=== PATIENT | female | born 1965 | race Caucasian/White ===

== ENCOUNTER 2024-01-30 06:58 | Observation (INO) | payer BC ==
[2024-01-30] VITALS (8 sets, daily range): BP systolic 116–132; BP diastolic 64–74; TEMP 97.4–98.6; O2SAT 90–96
[~2024-01-30] VITALS: Ht 152.4 cm; Wt 80.7 kg
[~2024-01-30 06:58] MED LIST: METF500T13 PO; OMEG10002 PO; OMEP40CA4 PO; SEMA1PEN2 SQ; SYNT112T2 PO; THERTAB52 PO
[2024-01-30] MEDS ORDERED: ROCURONIUM BROMIDE 50MG/5ML VIAL As Ordered ONE (07:02)
[2024-01-30] MEDS ORDERED: LIDOCAINE 2% 100MG/5ML SDV (FOR ANES.) As Ordered ONE (07:03)
[2024-01-30] MEDS ORDERED: MIDAZOLAM INJ 2MG/2ML VIAL As Ordered ONE (07:03)
[2024-01-30] MEDS ORDERED: fentaNYL 100 MCG/2 ML INJECTION As Ordered ONE (07:04)
[2024-01-30] MEDS ORDERED: SUGAMMADEX SODIUM 500 MG/5 ML VIAL (BRIDION) As Ordered ONE (07:08)
[2024-01-30] MEDS ORDERED: ACETAMINOPHEN 1000MG 100ML IV BAG As Ordered ONE (07:09)
[2024-01-30] MEDS ORDERED: ONDANSETRON 4MG 2ML VIAL As Ordered ONE (07:09)
[2024-01-30] MEDS ORDERED: LR 1,000 ML IV SCH (07:10)
[2024-01-30] MEDS: ceFAZolin SOD 2 GM in IV 1 EA IV ONE (08:50)
[2024-01-30] MEDS: HEPARIN SOD (PORCINE) 5000UNITS/ML 1ML VIAL/SYRINGE SQ ONE (08:55)
[2024-01-30] MEDS ORDERED: HYDROmorphone HCL 2MG/ML 1ML VIAL As Ordered ONE (09:18)
[2024-01-30] MEDS: LIDOCAINE 1% MDV 20ML VIAL As Ordered ONE (09:24)
[2024-01-30] MEDS: GENTAMICIN SULF 80MG/2ML VIAL As Ordered ONE (09:25)
[2024-01-30] MEDS: EPINEPHrine INJ 1 MG/ML 1ML AMP As Ordered ONE (09:25)
[2024-01-30] MEDS ORDERED: PHENYLephrine 500MCG 5ML (100MCG/ML) SYRINGE As Ordered ONE (09:56)
[2024-01-30] MEDS ORDERED: oxyCODONE 5MG TAB PO PRN (12:35)
[2024-01-30] MEDS ORDERED: fentaNYL 100 MCG/2 ML INJECTION IV PRN (12:35)
[2024-01-30] MEDS ORDERED: ONDANSETRON 4MG 2ML VIAL IV PRN ×2 (12:35→12:40)
[2024-01-30] MEDS ORDERED: ACETAMINOPHEN TAB 650MG DOSE (2X325MG) PO PRN (12:40)
[2024-01-30] MEDS: LR 1,000 ML IV SCH (12:40)
[2024-01-30] MEDS: traMADol 50 MG TAB PO PRN (13:29)
[2024-01-30] MEDS: FLUCONAZOLE 50MG TABLET PO ONE (16:01)
[2024-01-30] MEDS: ceFAZolin SOD 2 GM in IV 1 EA IV SCH (17:17)
[2024-01-31 04:00] VITALS: BP 114/66; TEMP 97.9; O2SAT 94
[2024-01-31 08:00] VITALS: BP 103/54; TEMP 97.5; O2SAT 95
[2024-01-31] MEDS ORDERED: HOME MED LIST COMPLETE! XX SCH (08:05)
[2024-01-31] MEDS ORDERED: TRAM50TA2 PO (09:41)
[2024-01-31] MEDS: PERCOCET 5MG/325MG TAB PO PRN (12:20)
== END 2024-01-31 12:35 | disposition home or self-care (01) ==
LOC: M SDC 06:58 → M MS5PR 06:59
PROVIDERS: ADMIT Plastic Surgery Surgery of the Hand; ATTEND Plastic Surgery Surgery of the Hand
DX: N62 Hypertrophy of breast (principal)
CPT/HCPCS: 19318; 88305; 96365; 96366; C9290; J0131; J0171; J0665; J0690; J1100; J1170; J1580; J2250; J2371; J2405; J3010

== ENCOUNTER → 2024-05-06 | Outpatient (REF) | payer BC ==
[~2024-05-06] MED LIST changes: +TRAM50TA2 PO
== END ==
LOC: M LAB REF 16:14
PROVIDERS: ATTEND Physician Assistant
DX: S21.002D Unspecified open wound of left breast, subsequent encounter (principal)